=== PATIENT | female | born 1955 | race Two or more races ===

== ENCOUNTER 2022-05-06 09:13 | Observation (INO) ==
--- NOTE | 2022-04-30 13:26 | Anesthesiology Consultation ---
Date of Service April 30, 2022 Assessment & Plan (1) Encounter for pre-operative examination: Plan - check EKG STAT am DOS. - COVID screening: Per websphere commerce architect on 04/30/2022: Travel screen negative, no known COVID-19 positive contacts or current COVID-19 related symptoms in past 2 weeks. To surgeon's discretion if preop COVID testing is needed. Chart Review Chart Review: Acceptable Risk for Surgery and Patient NOT seen in Pre Admission Testing History Surgery Operation Date: 05/06/22 10:45 Proposed Procedures p Right Parotidectomy with Possible Neck Dissection and Local Soft Tissue - Jarrod Riley MD Height/Weight Height: 4 ft 11 in Weight: 71.214 kg Allergies Allergy/AdvReac Type Severity Reaction Status Date / Time No Known Allergies Allergy Verified 04/17/22 10:03 Medications Home Medications Medication Instructions Recorded Confirmed Last Taken alprazolam 0.25 mg tablet 0.25 mg PO DAILY #30 tabs 04/17/22 04/30/22 Unknown aspirin 81 mg tablet,delayed 81 mg PO DAILY #30 tabs 04/17/22 04/30/22 Unknown release hydroxyzine HCl 25 mg tablet 25 mg PO DAILY #30 tabs 04/17/22 04/30/22 Unknown telmisartan 80 mg tablet 80 mg PO DAILY #30 tabs 04/17/22 04/30/22 Unknown Past Medical History Medical History History of COVID-19 2020: muscle aches, headache, cough, fever, loss of taste and smell -- mild to moderate symptoms. Hx of renal calculi no surgery needed. Hypertension Insomnia Preauricular mass R side Past Family History Family History Other No family history of adverse response to anesthesia Past Surgical History Surgical History History of cholecystectomy Social History Smoking Status: Current every day smoker tobacco type: cigarettes Smoking cigarettes per day: 10 x 35+ years Do You Dip or Chew Tobacco: No Hx Alcohol Use: No Hx Substance Use: No substance use type: does not use Lab Results Anesthesia Preop Results Results Anesthesia Widget: WBC 10.34 K/ul (4.8-10.8) 04/17/22 Hgb 14.5 g/dl (12.0-16.0) 04/17/22 Hct 42.6 % (37.0-47.0) 04/17/22 Plt 339 K/uL (130-400) 04/17/22 Na 140 mmol/L (136-145) 04/17/22 K 3.9 mmol/L (3.5-5.1) 04/17/22 Cl 105 mmol/L (98-107) 04/17/22 CO2 29 mmol/L (21-32) 04/17/22 BUN 9 mg/dl (6-23) 04/17/22 Creat 0.64 mg/dl (0.6-1.2) 04/17/22 Glucose Level 94 mg/dl (70-99(Fasting)) 04/17/22 TSH 5.360 uIu/ml (0.300-4.500) H 04/17/22 Free T4 0.88 ng/dl (0.61-1.60) 04/17/22 Testing Other Testing Soft tissue neck CT 04/17/22 Prominent heterogeneous parotid nodule as above. Fine-needle aspiration is recommended for further characterization. No lymphadenopathy or additional suspicious masses are seen. Head neck ultrasound 04/17/22 There is an indeterminant 4.0 cm soft tissue nodule within or adjacent of the right parotid gland. ENT follow-up is recommended, as is fine-needle aspiration of this lesion.
[~2022-05-06 09:13] MED LIST: LR 15ML/HR IV SCH
[2022-05-06] MEDS ORDERED: ROCURONIUM BROMIDE 10 MG/ML 5 ML VIAL IV ONE (09:35)
[2022-05-06] MEDS ORDERED: MIDAZOLAM HCL 1 MG/ML 2ML VIAL ONE (09:35)
[2022-05-06] MEDS ORDERED: DEXAMETHASONE SOD INJ 4 MG/ML VIAL ONE ×2 (09:35→15:15)
[2022-05-06] MEDS ORDERED: LIDOCAINE 2% MPF LOCAL 5 ML VIAL INFIL ONE (09:35)
[2022-05-06] MEDS ORDERED: ONDANSETRON INJ 2 MG/ML 2 ML VIAL ONE ×2 (09:35→18:17)
[2022-05-06] MEDS ORDERED: PROPOFOL IV EMULSION 10 MG/ML 20 ML VIAL IV ONE (09:35)
[2022-05-06] MEDS ORDERED: fentaNYL citrate PF 100 MCG/2 ML VIAL ONE ×3 (09:35→19:08)
--- NOTE | 2022-05-06 10:39 | Electrocardiogram Report ---
Test Reason : Blood Pressure : / mmHG Vent. Rate : 084 BPM Atrial Rate : 084 BPM P-R Int : 170 ms QRS Dur : 086 ms QT Int : 362 ms P-R-T Axes : 077 041 053 degrees QTc Int : 427 ms Normal sinus rhythm Left atrial enlargement Incomplete right bundle branch block Borderline ECG No previous ECGs available Confirmed by Caleb Cooper ([id number]) on 05/06/2022 10:39:07 AM Referred By: Jarrod Riley Confirmed By:Caleb Cooper
[2022-05-06] MEDS ORDERED: ePHEDrine sulfate 50 MG/ML AMP IV PRN (11:18)
[2022-05-06] MEDS ORDERED: ONDANSETRON INJ 2 MG/ML 2 ML VIAL IV PRN ×2 (11:18→20:27)
[2022-05-06] MEDS ORDERED: ATROPINE SULFATE 0.1 MG/ML 10ML SYR IV PRN (11:18)
[2022-05-06] MEDS ORDERED: LIDOCAINE 2%/EPINEPHRINE 1:100,000 20ML INFIL ONE (14:01)
[2022-05-06] MEDS ORDERED: BACITRACIN OINT 15 GM TUBE ONE (14:01)
[2022-05-06] MEDS ORDERED: ceFAZolin 2,000 MG/15 ML IV PUSH IV ONE (14:04)
--- NOTE | 2022-05-06 14:13 | History & Physical Report ---
Date of Service May 06, 2022 Assessment & Plan (1) Preauricular mass: Plan Ms. 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 She underwent an ultrasound and CT scan showing a large well demarcated mass of her right parotid with dilation of her stensons duct and no evidence of lymphadenopathy or local invasion. We discussed the risks and benefits of surgery and expectations post-operatively. She presents today for right parotidectomy. History of Present Illness Primary Care Provider: Ryan Castillo DO Ms. 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 She underwent an ultrasound and CT scan showing a large well demarcated mass of her right parotid with dilation of her stensons duct and no evidence of lymphadenopathy or local invasion. She reports no pain or other symptoms aside from the size and presents of the mass. She presents today for right superficial parotidectomy. Allergies Allergy/AdvReac Type Severity Reaction Status Date / Time No Known Allergies Allergy Verified 05/06/22 09:53 Home Medications Medication Instructions Recorded Confirmed Type alprazolam 0.25 mg tablet 0.25 mg PO DAILY #30 tabs 04/17/22 05/06/22 Rx aspirin 81 mg tablet,delayed 81 mg PO DAILY #30 tabs 04/17/22 05/06/22 Rx release hydroxyzine HCl 25 mg tablet 25 mg PO DAILY #30 tabs 04/17/22 05/06/22 Rx telmisartan 80 mg tablet 80 mg PO DAILY #30 tabs 04/17/22 05/06/22 Rx Past Med/Surg History Medical History History of COVID-2019: muscle aches, headache, cough, fever, loss of taste and smell -- mild to moderate symptoms. Hx of renal calculi no surgery needed. Hypertension Insomnia Preauricular mass R side Surgical History History of cholecystectomy Family History Other No family history of adverse response to anesthesia Social History Smoking Status: Current every day smoker Tobacco Type: Cigarettes Age Started Using Tobacco: 29; packs per day: 0.50; Cigarettes Per Day: 10 x 35+ years; Second Hand Exposure: No; Do You Dip or Chew Tobacco: No; Tobacco Cessation Education Requested by Patient: No Hx Alcohol Use: No Hx Substance Use: No Preferred Language: Tam[place] Communication Ability: Impaired Communication Ability Comment: limited reading and writing in portuguese Visual Impairment: Limited Hearing Ability: Normal Operations Developer Required: Yes Beliefs That Will Affect Care: None marital status: / Current Living Situation: Alone Other Information That Helps Us Care for You: No Childhood Exposure to Second-Hand Smoke: No caffeine: Yes Dental Care, Regularly: No Physical Activity Frequency: Does not Exercise Seatbelt Use: always Sunscreen Use: Yes (SOMETIMES) Assistive Devices: Glasses Physical Exam Physical Exam: GENERAL: NAD, AOx3 FACE: Symmetric and intact. Large mobile mass just anterior to the auricle without overlying cutaneous changes or irregular borders. There is reduced mobility of the skin over the center of the mass. EYES: EOMI, reactive and symmetric pupils EARS: Auricles are symmetric, external auditory canals are free of cerumen and patent; Tympanic membrane is clear without effusion, retraction, and lesions NOSE: Mild external deviation, mucosa intact; no polyps, purulence, or masses ORAL CAVITY: No trismus; Mucosal intact without lesions, ulcerations, or superficial changes; Tongue mobile OROPHARYNX: No masses or bleeding; No underlying changes of tonsillar pillars and pharyngeal mucosa; Symmetric palatal rise NECK: No masses, lymphadenopathy, or salivary tumors; Trachea midline RESPIRATORY: Symmetric chest expansion, no wheezing, stridor, or shortness of breath CARDIAC: Warm and well perfused extremities, no evidence of peripheral vascular disease NEURO: Alert and oriented, CNII-XII grossly intact Results & Data Results & Data ([facility]) Vital Signs (Past 12 Hours) Vital Signs Temp Pulse Resp BP Pulse Ox O2 Del Method 05/06/22 09:57 36.9 C 91 H 20 130/68 95 Room Air PG Care Time/CCT Total # of Minutes Spent Total Time Spent with Patient: Total time spent is greater than 50% in coordination of care (as documented) at patient's floor/unit and/or counseling patient: Coding Level of Care Code None Diagnoses Preauricular mass R22.0
[2022-05-06] MEDS ORDERED: PHENYLEPHRINE HCL 10 MG/ML VIAL ONE (15:16)
[2022-05-06] MEDS ORDERED: PHENYLEPHRINE 100MCG/ML 5ML SYR ONE (15:16)
[2022-05-06] MEDS ORDERED: KETAMINE 50 MG/5 ML SYRINGE ONE (17:05)
--- NOTE | 2022-05-06 20:05 | Post Operative Brief Note ---
PG Immediate Post Op with CF Date of Surgery May 06, 2022 Pre & Post Diagnosis Operation Date: 05/06/22 10:50 Pre-Op Diagnosis: Preauricular Mass Post-Op Diagnosis: Preauricular Mass I identified the patient and participated in the time-out.: Yes Procedure Operation Date: 05/06/22 10:50 Actual Procedures p Right Parotidectomy with Possible Neck Dissection and Local Soft Tissue Reconstruction(Right) - Jarrod Riley MD Sternocleidomastoid pedicled flap based off occipital artery Surgeon Jarrod Riley MD Stonework Supervisor None Estimated Blood Loss 50 Findings Consistent with Post-Op Diagnosis Large tumor with dilated duct and fibrosis and loss of tissue planes in this area; No overt signs of invasion; Facial nerve intertwined throughout and pushed posteriorly in the lower division Specimens Specimen Description: A. Right parotid tumor Drains Ap-Mayorga Drain (7fr flat)
[2022-05-06] MEDS ORDERED: ACETAMINOPHEN 325 MG TAB PO PRN (20:27)
[2022-05-06] MEDS ORDERED: LABETALOL HCL IV 5 MG/ML 20ML IV PRN (20:50)
[2022-05-06] MEDS ORDERED: LABETALOL HCL IV 5 MG/ML 20ML IV ONE (20:50)
--- NOTE | 2022-05-06 21:07 | Anesthesiology Progress Note ---
Date of Service May 06, 2022 Anesthesia Post Procedure Vital Signs Vital Signs: Temp Pulse Pulse Resp BP Pulse Ox O2 Del Method 05/06/22 21:00 115 H 18 111/59 L 97 Nasal Cannula 05/06/22 20:50 115 H 18 107/63 97 Nasal Cannula 05/06/22 20:40 114 H 18 125/67 95 Room Air 05/06/22 20:30 120 H 20 108/55 L 99 Oxymask 05/06/22 20:20 120 H 20 92/56 L 99 Oxymask 05/06/22 20:10 36.7 C 120 H 20 84/47 L 99 Oxymask 05/06/22 09:57 36.9 C 91 H 20 130/68 95 Room Air O2 Flow Rate 05/06/22 21:00 2 05/06/22 20:50 2 05/06/22 20:40 05/06/22 20:30 5 05/06/22 20:20 5 05/06/22 20:10 5 05/06/22 09:57 Pain Intensity Right Neck: Pain Intensity: 5 Transfer of Care Handoff Completed per policy Notes Mental Status: alert / awake / arousable Patient Amnestic to Procedure: Yes Nausea / Vomiting: adequately controlled Pain: adequately controlled Airway Patency, RR, SpO2: stable & adequate BP & HR: stable & adequate Hydration State: stable & adequate Anesthetic Complications: no major complications apparent
[2022-05-06] MEDS: HYDROmorphone INJ 1 MG/ML SYRINGE IV PRN ×2 (21:15→21:30)
[2022-05-06] MEDS ORDERED: HYDROmorphone INJ 0.5 MG/0.5 ML SYR ONE (21:15)
[2022-05-07] MEDS ORDERED: COUGH DROP (SUGAR FREE) LOZ 24 LOZ/1 BOX BUCCAL ONE (01:50)
[2022-05-07] MEDS ORDERED: ASPIRIN 81 MG ECTAB PO SCH (09:00)
[2022-05-07] MEDS ORDERED: hydrOXYzine HCl 25 MG TAB PO SCH (09:00)
[2022-05-07] MEDS ORDERED: NICOTINE 21 MG/24 HR TDSY TD SCH (09:00)
[2022-05-07] MEDS ORDERED: ALPRAZolam 0.25 MG TABLET PO SCH (09:00)
--- NOTE | 2022-05-19 09:22 | Operative Report ---
PG Post Operative Report Pre & Post Diagnosis Operation Date: 05/06/22 10:50 Pre-Op Diagnosis: Preauricular Mass Post-Op Diagnosis: Preauricular Mass I identified the patient and participated in the time-out.: Yes Procedure Operation Date: 05/06/22 10:50 Actual Procedures p Right Total Parotidectomy and approach to infratemporal fossa Local Soft Tissue Reconstruction(Right) - Jarrod Riley MD Cervicofacial rotational flap, SMAS flap reconstruction of defect Surgeon Jarrod Riley MD Money Market Clerk None Estimated Blood Loss 50 Findings Consistent with Post-Op Diagnosis Specimens Right parotid mass Drains 1 MARLA Anesthesia Type General Complications none Disposition Accompanied Patient To Recovery: Yes Disposition: Recovery Room Description of Procedure A modified Osmar incision was designed in the preauricular crease and widened anterior to the lobule and mastoid to include approximately 7 cm x 5 cm wide local excision of the skin directly overlying the superficial component of the mass which was retained and included with the final specimen. The skin and subcutaneous tissue was incised and thinned proximally near the mass to avoid inadvertent injury and tumor seeding while maintaining a distance for pathological margin assessment. Once the mass was cleared circumferentially, adiopocutaneous flaps were elevated anteriorly to the ramus and angle of the mandible where the parotid was absent, but had been consumed by the tumor situated between the ramus and mastoid tip. At the posterior extent of the tumor, the mastoid, post-auricular face of the ear cartilage, and sternocleidomastoid muscle were exposed to begin mobilizing the mass. Along the posterior tumors surface near the sternocleidomastoid muscle, there were three facial nerve branches that were dissected free and, upon stimulation, they retracted and depressed the lower lip complex. These nerves were carefully and painstakingly freed from the tumor surface while the mass was retracted anteriorly and pulled away from the patient. As the nerves were cleared with the mass retracted anteriorly and outward, there were additional nerves that ran along the inferior and deep aspect of the tumor with the midface branches following the tumor anteriorly, almost perpendicular to the typical anterior course, before tortuously emerging at an sharp angle between the mass and posterior ramus to course over the masseter muscle. The distal branches of each nerve was traced retrograde towards the tumor and the mass was slowly mobilized with each iteration improving the visualization, access, and working room from posteroinferior. After locating all the branches and mapping the course of the smaller branches of the nerve except posterosuperiorly given the proximity to the stylomastoid foramen and neural trunk, the mass was able to be retracted anteriorly and allowed dissection along the external auditory canal where the mass was liberated after transecting fascial attachments and soft tissue anchoring the mass deep but between the major branch point of the nerve. The tumor, parotid gland, and skin was removed from the surgical field en bloc, the wound was irrigated and hemostasis confirmed, and each branch of the nerve responded after inducing innervation and muscular provocation with the Pras neurostimulator. The defect extended into the infratemporal fossa. superficial musculoaponeurotic system wasreleased anteriorly to mobilize the composite flap but, given that the defect did not signicantly extendmedially, it was left intact over the inferior orbital rim, medial buttress, and oral commissure topreserve the musculoaponeurotic-cutaneous ligaments and midface support and the vascular supply from the angular and distal facial artery. The superior third of the sternocleidomastoid muscle was then opened somewhat vertically at first prior to dividing the muscle belly at the inferior attachment and rotating the muscle into the defect from below and securing it to the underside of the muscular aponeurosis which was itself pulled posteriorly and anchored with several pb sutures to the periosteum of the mastoid and temporal bone. A standard modified Osmar incision was designed in the preauricular crease and posterior to the lobule near the mastoid tip. Approximately a third of the length was incised to dissect through the skin and subcutaneous tissue and expose the parotid gland. To maintain thickness, the parotidomasseteric fascia was exposed while elevating the superficial soft tissue to approximately the anterior aspect of the tumor, sufficiently creating a bridge of parotid tissue between us and the mass. The cartilaginous followed by the bony external auditory canal was then traced towards the skull base to identify and define the predictive landmarks, notably the stylomastoidal suture line, styloid process, and digastric muscle, at which point the nerve was unroofed, stimulated, and protected. The mass was anterosuperior compared to the nerve and after clearing the pes anserine, the arborized superior division was mapped, locating each branch and rolling the mass superiorly first. As the most superior fibers were liberated, the mass was subsequently rolled inferiorly and dissected free of the remaining fascial chains. As the last anchoring ligament was transected, the mass along with a large portion of the parotid gland was removed from the surgical field. The wound was irrigated, hemostasis confirmed, and a MARLA drain was placed after inducing innervation and provocation with the Pras neuro stimulator. The remaining defect included the entirety of the parotid gland and lateral infratemporal fossa while the only remaining parotid tissue was the tail inferiorly. This was mobilized and flipped into the defect, a cervicofacial flap was elevated inferior and posterior with the proximal portion de-epithelialized and folded underneath itself to increase the thickness and bulk of the transplanted tissue, and the superficial musculoaponeurotic system wasreleased anteriorly to mobilize a composite flap. The SMAS flap was secured posteriorly and the cervicofacial flap was obliquely advanced with both sutured to the mastoid periosteum and tragal perichondrium near the lobule. Prior to flap inset, the surgical site was irrigated, hemostasis re-confirmed, and a drain wassecured in place. The overlying flaps and [place] tissue were closed in multiple layers with 3-0 vicrylsutures separately for a fascial and deep dermis reappositionand finally to complete reconstitution of the facial contourthe face was reedraped and the cutaneous wound edges were reapproximated with monocryl. I attest to the content of the Intraoperative Record and any orders documented therein. Any exceptions are noted below.
--- NOTE | 2022-06-09 08:38 | Discharge Summary ---
Date of Service May 06, 2022 Admission HPI Per Admitting Provider Ms. 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 She underwent an ultrasound and CT scan showing a large well demarcated mass of her right parotid with dilation of her stensons duct and no evidence of lymphadenopathy or local invasion. She reports no pain or other symptoms aside from the size and presence of the mass and presents today for right superficial parotidectomy. Discharge Data Procedures Performed Operation Date: 05/06/22 10:50 Actual Procedures p Right Parotidectomy with Neck Dissection and Local Soft Tissue Reconstruction(Right) - Jarrod Riley MD Hospital Course (1) Preauricular mass: Plan Ms. 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 Post-operatively, the marginal mandib ular branch of her nerve was weak, and she was discharged home on POD1 with a drain in place as well as pain managed with oral medications, ambulating, with normal bowel and bladder function, and tolerating a near normal diet with some odynophagia and neck tightness but no signs or symptoms of aspiration and no dysphonia and no fluid collection.
== END 2022-05-07 10:39 | disposition home or self-care (01) ==
LOC: 3E 09:13 → ASU 09:13